=== PATIENT | male | born 1970 | race African-American/Black ===

== ENCOUNTER 2018-10-07 17:39 | Emergency (ER) | payer MEDICAID ==
[~2018-10-07] VITALS: Ht 175.3 cm; Wt 56.7 kg
[2018-10-07 17:50] VITALS: BP 107/73
--- NOTE | 2018-10-07 17:50 | NUR ---
ED Nurse Note: pt walked in to ER from home due to sudden onset lower back pain 11/18. pt aao x4 and ambulatory. skin clean and intact. calm and cooperative but moaning for severe pain. 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 no acute distress noted at this time.
--- NOTE | 2018-10-07 17:53 | NUR ---
ED Nurse Note: ERMD at bedside.
--- NOTE | 2018-10-07 17:57 | Emergency Room Report ---
History of Present Illness General Chief Complaint: Back Pain-No Injury Source: EMS Present Illness HPI Patient is a 48-year-old male presented after increased low back pain. Patient reports having no prior episodes of back pain in the past. He reports having increased difficulty with movements. Pain started approximately 36 hours ago. Patient denies any weakness to his extremities. He reports having increased pain with ambulation. He denies any abdominal pain or vomiting. He reports having normal urination normal bowel movements. He denies recent trauma. Pain is worse with movement. He denies any other joint pain. Pain is described as a tightness. Allergies: Coded Allergies: No Known Allergies (Unverified , 10/07/18) Patient History Past Medical History: see triage record Reviewed Nursing Documentation: PMH: Agreed; PSxH: Agreed Nursing Documentation-PMH Past Medical History: No Stated History Review of Systems All Other Systems: negative except mentioned in HPI Physical Exam Vital Signs Date Time Temp Pulse Resp B/P (MAP) Pulse Ox O2 Delivery O2 Flow Rate FiO2 10/07/18 17:34 98.6 72 19 107/73 (84) 99 Room Air Sp02 EP Interpretation: reviewed, normal General Appearance: normal inspection, well appearing, no apparent distress, alert, GCS 15, non-toxic Head: atraumatic ENT: normal ENT inspection, hearing grossly normal, normal voice Neck: normal inspection, full range of motion, supple, no bony tend Respiratory: normal inspection, lungs clear, normal breath sounds, no respiratory distress, no retraction, no wheezing Cardiovascular #1: regular rate, rhythm, no edema Gastrointestinal: normal inspection, normal bowel sounds, non tender, soft, no guarding, no hernia Genitourinary: no CVA tenderness Musculoskeletal: decreased range of motion - low back with muscle spasm Neurologic: normal inspection, alert, oriented x3, responsive, top taper machine III-XII nml as tested, speech normal Psychiatric: normal inspection, judgement/insight normal, mood/affect normal Medical Decision Making Diagnostic Impression: Primary Impression: Muscle spasm Last Vital Signs Date Time Temp Pulse Resp B/P (MAP) Pulse Ox O2 Delivery O2 Flow Rate FiO2 10/07/18 17:50 98.6 87 19 107/73 99 Room Air Status: improved Disposition: HOME, SELF-CARE Condition: Stable Scripts Ibuprofen* (MOTRIN*) 600 Mg Tablet 600 MG ORAL Q8H PRN for For Pain, #30 TAB 0 Refills Prov: Chin Martin MD 10/07/18 Cyclobenzaprine Hcl* (FLEXERIL*) 10 Mg Tablet 10 MG ORAL TID PRN for Muscle Spasm, #20 TAB Prov: Chin Martin MD 10/07/18 Chin Martin MD Oct 07, 2018 17:57
[2018-10-07] MEDS ORDERED: Ketorolac 60mg Inj IM ONE (18:00)
[2018-10-07] MEDS ORDERED: Cyclobenzaprine 10mg Tab ORAL ONE (18:00)
--- NOTE | 2018-10-07 18:05 | NUR ---
ED Nurse Note: pt went down for CT scan in stable condition.
--- NOTE | 2018-10-07 18:17 | NUR ---
ED Nurse Note: pt came back from CT scan in stable condition.
--- NOTE | 2018-10-07 18:40 | Diagnostic Imaging Report ---
Indication: Back pain Technique: Continuous helical transaxial imaging of the lumbar spine was obtained. No IV contrast was administered. Coronal 2-D reformats were also obtained. Study obtained in a Siemens sensation [address] Total Dose length Product (DLP): 337.[address] Dose Index Volume (CTDIvol): 10.29 mGy Comparison: None Findings: There is no evidence of an acute fracture or malalignment. The lumbar spine is straight which may be due to muscle spasm. Height and configuration of the vertebral bodies and intervertebral discs are within normal limits. There is some calcification of the annulus margins involving some of the discs. The facets are unremarkable. There is no soft tissue swelling. There is mild arterial calcium within portions of the visualized iliac arteries and aorta. Impression: Negative lumbar spine CT. Atherosclerotic vascular disease [facility] has communicated the preliminary results to the Emergency Department. Their findings are largely concordant with this report. The CT scanner at [facility] is accredited by the [employer] and the scans are performed using dose optimization techniques as appropriate to a performed exam including Automatic Exposure control.
[2018-10-07 18:56] LABS: APPEARANCE,URINE CLEAR; BILIRUBIN, URINE NEGATIVE (NEGATIVE); GLUCOSE, URINE (UA) NEGATIVE (NEGATIVE); KETONES,URINE NEGATIVE (NEGATIVE); LEUKOCYTE ESTERASE ,URINE NEGATIVE (NEGATIVE); NITRITE,URINE NEGATIVE (NEGATIVE); PH,URINE 7 (4.5-8.0); PROTEIN,URINE NEGATIVE (NEGATIVE); UROBILINOGEN,URINE 1 MG/DL (0.0-1.0)
[2018-10-07 18:59] LABS: COLOR,URINE YELLOW
--- NOTE | 2018-10-07 19:00 | NUR ---
ED Nurse Note: Recived pt form Darci MORGAN. Pt with no acute distress, vss, and family at bedside. Skin issues noted. Addendum: 10/07/18 at 1917 by ARASH ED Nurse Note: Recived pt form Darci MORGAN. Pt with no acute distress, vss, and family at bedside. Skin issues noted.
--- NOTE | 2018-10-07 19:02 | NUR ---
HAND-OFF: Report given to EDDIE Owusu. waiting for CT result. no orders to carry at this moment.
[2018-10-07] MEDS ORDERED: IBUPROFEN600 MG ORAL (19:36)
[2018-10-07] MEDS ORDERED: CYCLOBENZAPRINE10 MG ORAL (19:36)
[2018-10-07 19:44] VITALS: BP 114/80
== END 2018-10-07 19:44 | disposition home or self-care (01) ==
LOC: EDBD 17:39 → EMR 19:14
DX: M54.5 Low back pain (principal)
CPT/HCPCS: 72131; 81003; 96372; 99284

== ENCOUNTER 2018-12-19 16:17 | Emergency (ER) | payer MEDICAID ==
[~2018-12-19] VITALS: Ht 172.7 cm; Wt 57.2 kg
[~2018-12-19 16:17] MED LIST: CYCLOBENZAPRINE10 MG ORAL; IBUPROFEN600 MG ORAL
[2018-12-19 16:40] VITALS: BP 114/91
--- NOTE | 2018-12-19 16:40 | NUR ---
ED Nurse Note: Pt ambulated into ER accompanied by sister. C/o painful cough and difficulty breathing x 1 week. Pt states pain score 10/10 of abdomen. Pt is AAOx4, audible wheezing and difficult, fast paced respiratory effort noted. no cardiac distress noted. Placed pt on alarm security or surveillance monitor.
[2018-12-19 17:15] LABS: BASOPHILS % (AUTO) 1.8 % (0.0-2.0); EOSINOPHILS % (AUTO) 2.6 % (0.0-3.0); HEMATOCRIT 41.8 % (42.0-52.0); HEMOGLOBIN 14.6 G/DL (14.2-18.0); LYMPHOCYTES % (AUTO) 50.6 % (20.0-45.0); MEAN CORPUSCULAR VOLUME 99 FL (80-99); MONOCYTES % (AUTO) 7.1 % (1.0-10.0); NEUTROPHILS % (AUTO) 37.8 % (45.0-75.0); PLATELET COUNT 161 K/UL (150-450); RED BLOOD COUNT 4.22 M/UL (4.70-6.10); RED CELL DISTRIBUTION WIDTH 11.4 % (11.6-14.8); WHITE BLOOD COUNT 5.1 K/UL (4.8-10.8)
[2018-12-19 17:29] LABS: ANION GAP 11 mmol/L (5-15); BLOOD UREA NITROGEN 21 mg/dL (7-18); CALCIUM 8.6 MG/DL (8.5-10.1); CARBON DIOXIDE 24 MMOL/L (21-32); CHLORIDE 109 MMOL/L (98-107); CREATININE 1.2 MG/DL (0.55-1.30); POTASSIUM 4.2 MMOL/L (3.5-5.1); SODIUM 143 MMOL/L (136-145)
[2018-12-19 17:40] LABS: ALANINE AMINOTRANSFERASE 100 U/L (12-78); ALBUMIN 3.4 G/DL (3.4-5.0); ALKALINE PHOSPHATASE 103 U/L (46-116); ASPARTATE AMINO TRANSFERASE 46 U/L (15-37); BILIRUBIN,TOTAL 0.6 MG/DL (0.2-1.0)
--- NOTE | 2018-12-19 17:40 | NUR ---
ED Nurse Note: MESSI explained to pt about lab results.
[2018-12-19] MEDS: Ipratropium 0.02% Inh Soln 2.5ml UD HHN SCH ×2 (17:46→17:47)
[2018-12-19] MEDS: Albuterol ud Inhalation HHN SCH (17:47)
--- NOTE | 2018-12-19 17:50 | NUR ---
ED Nurse Note: called x-ray for reminder.
--- NOTE | 2018-12-19 17:54 | NUR ---
ED Nurse Note: called x-ray for reminder.
--- NOTE | 2018-12-19 18:09 | Emergency Room Report ---
History of Present Illness General Chief Complaint: Upper Respiratory Illness Source: Patient Present Illness HPI 48-year-old male presents with shortness of breath, x1 week, worsening over the past couple days, dyspnea on exertion, denies any chest pain nausea vomiting, or diaphoresis, he does endorse a mild cough, some thoracic pain, severity is mild, intermittent he does describe a slight ache to his thoracic wall bilaterally patient presents for evaluation Allergies: Coded Allergies: No Known Allergies (Unverified , 10/07/18) Patient History Past Medical History: see triage record Social History: Reports: smoking Reviewed Nursing Documentation: PMH: Agreed; PSxH: Agreed Nursing Documentation-PMH Past Medical History: No Stated History Review of Systems All Other Systems: negative except mentioned in HPI Physical Exam Vital Signs Date Time Temp Pulse Resp B/P (MAP) Pulse Ox O2 Delivery O2 Flow Rate FiO2 12/19/18 16:35 98.2 100 18 115/88 (97) 98 Room Air Sp02 EP Interpretation: reviewed, normal General Appearance: well appearing, no apparent distress, alert Head: normocephalic, atraumatic Eyes: bilateral eye PERRL, bilateral eye EOMI ENT: uvula midline, moist mucus membranes Neck: supple, thyroid normal, supple/symm/no masses Respiratory: lungs clear, no respiratory distress, no retraction, no accessory muscle use Cardiovascular #1: normal peripheral pulses, regular rate, rhythm, no edema, no gallop, no murmur Gastrointestinal: non tender, soft, no guarding, no rebound Musculoskeletal: normal inspection Neurologic: alert, oriented x3 Psychiatric: mood/affect normal Skin: no rash, warm/dry Medical Decision Making Diagnostic Impression: Primary Impression: NSTEMI (non-ST elevated myocardial infarction) Additional Impression: Upper respiratory infection Qualified Codes: J06.9 - Acute upper respiratory infection, unspecified ER Course 48-year-old male presents with cough, dyspnea, shortness of breath x1 week, concern for possible ACS versus pneumonia versus COPD exacerbation Duo nebs, steroids started, patient felt better breathing improved lungs opened up Patient incidentally found to have an elevated troponin, and an enlarged heart on x-ray but no acute cardiopulmonary processes Patient given lovenox and aspirin. Counseled patient that he needs to be admitted to the hospital, patient refused states he does not want to be admitted he will do better at home he states he has a PCP follow-up anyways The patient has requested to leave the ED against medical advice. The patient reason(s) for leaving include, but are not limited to, the following: wants to go home. I believe this patient is of sound mind and competent to refuse medical care. The patient is responding and asking questions appropriately. The patient is oriented to person, place and time. The patient is not psychotic, delusional, suicidal, homicidal or hallucinating. The patient demonstrates a normal mental capacity to make decisions regarding their healthcare. The patient is clinically sober and does not appear to be under the influence of any illicit drugs at this time. The patient has been advised of the risks, in layman terms, of leaving AMA which include, but are not limited to , coma, permanent disability, loss of current lifestyle, delay in diagnosis. Alternatives have been offered - the patient remains steadfast in their wish to leave. The patient has been advised that should they change their mind they are welcome to return to this hospital, or any other, at any time. The patient understands that in no way does an AMA discharge mean that I do not want them to have the best medical care available. To this end, I have provided appropriate prescriptions, referrals, and discharge instructions. The patient did sign AMA paperwork. The above discussion was witnessed by another member of staff. Laboratory Tests Test 12/19/18 16:55 White Blood Count 5.1 K/UL (4.8-10.8) Red Blood Count 4.22 M/UL (4.70-6.10) L Hemoglobin 14.6 G/DL (14.2-18.0) Hematocrit 41.8 % (42.0-52.0) L Mean Corpuscular Volume 99 FL (80-99) Mean Corpuscular Hemoglobin 34.5 PG (27.0-31.0) H Mean Corpuscular Hemoglobin Concent 34.9 G/DL (32.0-36.0) Red Cell Distribution Width 11.4 % (11.6-14.8) L Platelet Count 161 K/UL (150-450) Mean Platelet Volume 8.0 FL (6.5-10.1) Neutrophils (%) (Auto) 37.8 % (45.0-75.0) L Lymphocytes (%) (Auto) 50.6 % (20.0-45.0) H Monocytes (%) (Auto) 7.1 % (1.0-10.0) Eosinophils (%) (Auto) 2.6 % (0.0-3.0) Basophils (%) (Auto) 1.8 % (0.0-2.0) Prothrombin Time 10.9 SEC (9.30-11.50) Prothrombin Time INR 1.0 (0.9-1.1) PTT 26 SEC (23-33) Sodium Level 143 MMOL/L (136-145) Potassium Level 4.2 MMOL/L (3.5-5.1) Chloride Level 109 MMOL/L (98-107) H Carbon Dioxide Level 24 MMOL/L (21-32) Anion Gap 11 mmol/L (5-15) Blood Urea Nitrogen 21 mg/dL (7-18) H Creatinine 1.2 MG/DL (0.55-1.30) Estimate Glomerular Filtration Rate > 60 mL/min (>60) Glucose Level 86 MG/DL (74-106) Calcium Level 8.6 MG/DL (8.5-10.1) Total Bilirubin 0.6 MG/DL (0.2-1.0) Aspartate Amino Transferase (AST) 46 U/L (15-37) H Alanine Aminotransferase (ALT) 100 U/L (12-78) H Alkaline Phosphatase 103 U/L (46-116) Troponin I 0.074 ng/mL (0.000-0.056) Pro-B-Type Natriuretic Peptide 3596 pg/mL (0-125) H Total Protein 6.7 G/DL (6.4-8.2) Albumin 3.4 G/DL (3.4-5.0) Globulin 3.3 g/dL Albumin/Globulin Ratio 1.0 (1.0-2.7) Lipase 244 U/L (73-393) EKG Diagnostic Results EKG Time: 16:58 EP Interpretation: sinus tachycardia, rate 104, qtc 494, left axis dev, no acute st elevatio Rhythm Strip Diag. Results Rhythm Strip Time: 18:09 EP Interpretation: yes Rate: 104 Rhythm: no PVC's, no ectopy, other - sinus tachycardia Chest X-Ray Diagnostic Results Chest X-Ray Diagnostic Results : Chest X-Ray Ordered: Yes # of Views/Limited/Complete: 1 View Indication: Chest Pain EP Interpretation: Yes Interpretation: no consolidation, no effusion, no pneumothorax, no acute cardiopulmonary disease, other - Enlarged heart Impression: No acute disease Electronically Signed by: Norman Foley MD Last Vital Signs Date Time Temp Pulse Resp B/P (MAP) Pulse Ox O2 Delivery O2 Flow Rate FiO2 12/19/18 16:40 98.2 102 18 114/91 98 Room Air Disposition: HOME, SELF-CARE Condition: Stable Scripts Aspirin* (ASPIR 81*) 81 Mg Tablet. 81 MG ORAL DAILY, #90 TAB Prov: Norman Foley MD 12/19/18 Albuterol Sulfate* (ALBUTEROL SULFATE HHN*) 2.5 Mg/3 Ml Vial.neb 2.5 MG HHN Q4H PRN for Shortness of Breath, #100 VIAL Prov: Norman Foley MD 12/19/18 Albuterol Sulfate* (ALBUTEROL SULFATE MDI*) 8.5 Gm Hfa.aer.ad 2 PUFF INH Q4H PRN for cough/wheezing, #1 EA 0 Refills Prov: Norman Foley MD 12/19/18 Referrals: [facility] Patient Instructions: Chronic Obstructive Pulmonary Disease Exacerbation, Easy- to-Read, Non-ST Segment Elevation Heart Attack, Upper Respiratory Infection, Adult Additional Instructions: The patient was provided with discharge instructions, notified to follow-up with a primary care doctor and or specialist in the next 24-48 hours, and to return to the ED if they have worsening of their symptoms. Please note that this report is being documented using [employer] technology. This can lead to erroneous entry secondary to incorrect interpretation by the dictating instrument. PLEASE FOLLOW-UP WITH CORRUGATED SHEET MATERIAL SHEETER, PLEASE FOLLOW-UP WITH PCP, PLEASE FOLLOW-UP WITH PULMONOLOGY VANIA YOU WILL NEED A CATH AND POSSIBLE STRESS. PLEASE TAKE ASPIRIN EVERYDAY IF YOU GET WORSE PLEASE COME BACK TO THE ED. Norman Foley MD Dec 19, 2018 18:09
[2018-12-19] MEDS ORDERED: Enoxaparin 60mg Inj SUBQ ONE (18:15)
--- NOTE | 2018-12-19 18:26 | NUR ---
ED Nurse Note: x-ray at bedside.
--- NOTE | 2018-12-19 18:33 | NUR ---
ED Nurse Note: pt was informed about admitting plans and refused to be admitted. ERMD made aware.
[2018-12-19] MEDS ORDERED: ASPIR 8181 MG ORAL (18:51)
[2018-12-19] MEDS ORDERED: ALBUTEROL SULF8.5 GM INH (18:51)
[2018-12-19] MEDS ORDERED: ALBUTEROL2.5 MG/3 M HHN (18:51)
--- NOTE | 2018-12-19 18:52 | NUR ---
ED Nurse Note: ERMD explaining to pt about risk of leaving AMA.
[2018-12-19] MEDS ORDERED: FUROSEMIDE20 M1 ORAL (19:09)
--- NOTE | 2018-12-19 19:15 | NUR ---
AMA: SEE AMA FORM. ED Nurse Note: Pt risks of leaving explained by health care Provider. pt verbalized understanding of risks and would still like to leave AMA. prescriptions and d/c instructions were explained to pt and sister who both verbalized understanding of teachings. All medical devices such as ID band and IV removed. Pt is AAO x4, ambulatory and left with all personal belongings.
[2018-12-19 19:20] VITALS: BP 113/79
--- NOTE | 2018-12-20 15:19 | Diagnostic Imaging Report ---
Indication: Dyspnea Comparison: None A single view chest radiograph was obtained. Findings: Cardiac silhouette is prominent. Lung volumes are low bilaterally. There is suggestion of mild pulmonary vascular congestion. Correlate clinically. Bones are unremarkable. IMPRESSION: Query mild pulmonary vascular congestion. Correlate clinically
== END 2018-12-19 19:20 | disposition left against medical advice (07) ==
LOC: EMR 17:00 → CANBEDREQ 19:10 → EMR 19:20
DX: I21.4 Non-ST elevation (NSTEMI) myocardial infarction (principal); J06.9 Acute upper respiratory infection, unspecified; F17.200 Nicotine dependence, unspecified, uncomplicated; R00.0 Tachycardia, unspecified
CPT/HCPCS: 36415; 71045; 80053; 83690; 83880; 84484; 85025; 85610; 85730; 93005; 94640; 94664; 96365; 96366; 96372; 96375; J1650; J1940; J8540; Z7502; 99285; J7030

== ENCOUNTER 2018-12-26 05:44 | Emergency (ER) | payer MEDICAID ==
[~2018-12-26] VITALS: Ht 167.6 cm; Wt 54.4 kg
[~2018-12-26 05:44] MED LIST changes: +ALBUTEROL SULF8.5 GM INH; +ALBUTEROL2.5 MG/3 M HHN; +ASPIR 8181 MG ORAL; +FUROSEMIDE20 M1 ORAL
--- NOTE | 2018-12-26 06:15 | Emergency Room Report ---
History of Present Illness General Chief Complaint: Chest Pain Source: Patient (Chin Martin MD) Present Illness HPI Patient is a 48-year-old male who presents after increased abdominal discomfort and vomiting. He reports having bilateral crampy abdominal pain associated with vomiting. He had a recent emergency department visit at this hospital approximately 1 week ago. Denies any hematemesis or bloody stool. He reports having increased chest discomfort since last night approximately 9 PM. He had recently been prescribed inhaler. Patient does not have any prior history of hypertension or high cholesterol. He is not diabetic. He had previously been a cigar smoker. (Chin Martin MD) Allergies: Coded Allergies: No Known Allergies (Unverified , 10/07/18) Patient History Past Medical History: see triage record Reviewed Nursing Documentation: PMH: Agreed; PSxH: Agreed (Chin Martin MD) Review of Systems All Other Systems: negative except mentioned in HPI (Chin Martin MD) Physical Exam Vital Signs Date Time Temp Pulse Resp B/P (MAP) Pulse Ox O2 Delivery O2 Flow Rate FiO2 12/26/18 06:01 98 18 107/83 (91) 97 Room Air Sp02 EP Interpretation: reviewed, normal General Appearance: normal inspection, well appearing, no apparent distress, alert, GCS 15, thin, Chronically Ill Head: atraumatic ENT: normal ENT inspection, hearing grossly normal, normal voice Neck: normal inspection, full range of motion, supple, no bony tend Respiratory: normal inspection, lungs clear, normal breath sounds, no respiratory distress, no retraction, no wheezing Cardiovascular #1: regular rate, rhythm, no edema Gastrointestinal: normal inspection, normal bowel sounds, non tender, soft, no guarding, no hernia Genitourinary: no CVA tenderness Musculoskeletal: normal inspection, back normal, normal range of motion Neurologic: normal inspection, alert, oriented x3, responsive, 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 Differential diagnosis included but was not limited to acute coronary syndrome, pulmonary embolism, pneumonia, aortic dissection, shingles, pneumothorax, aortic dissection, esophageal rupture, pericarditis. CxR showed cardiomegaly without infiltrate. Patient was given IV lasix with some improvement. Patient was endorsed to Dr. Card pending admission authorization and final disposition. Labs Test 12/26/18 06:30 12/26/18 06:50 White Blood Count 7.2 K/UL (4.8-10.8) Red Blood Count 4.79 M/UL (4.70-6.10) Hemoglobin 16.1 G/DL (14.2-18.0) Hematocrit 48.4 % (42.0-52.0) Mean Corpuscular Volume 101 FL (80-99) Mean Corpuscular Hemoglobin 33.6 PG (27.0-31.0) Mean Corpuscular Hemoglobin Concent 33.2 G/DL (32.0-36.0) Red Cell Distribution Width 12.0 % (11.6-14.8) Platelet Count 201 K/UL (150-450) Mean Platelet Volume 7.2 FL (6.5-10.1) Neutrophils (%) (Auto) 62.8 % (45.0-75.0) Lymphocytes (%) (Auto) 30.9 % (20.0-45.0) Monocytes (%) (Auto) 5.0 % (1.0-10.0) Eosinophils (%) (Auto) 0.4 % (0.0-3.0) Basophils (%) (Auto) 1.0 % (0.0-2.0) Prothrombin Time 12.7 SEC (9.30-11.50) Prothromb Time International Ratio 1.2 (0.9-1.1) Activated Partial Thromboplast Time 27 SEC (23-33) Sodium Level 134 MMOL/L (136-145) Potassium Level 5.1 MMOL/L (3.5-5.1) Chloride Level 102 MMOL/L (98-107) Carbon Dioxide Level 25 MMOL/L (21-32) Anion Gap 7 mmol/L (5-15) Blood Urea Nitrogen 26 mg/dL (7-18) Creatinine 1.3 MG/DL (0.55-1.30) Estimat Glomerular Filtration Rate > 60 mL/min (>60) Glucose Level 127 MG/DL (74-106) Calcium Level 8.6 MG/DL (8.5-10.1) Total Bilirubin 3.8 MG/DL (0.2-1.0) Direct Bilirubin 0.4 MG/DL (0.0-0.3) Aspartate Amino Transf (AST/SGOT) 54 U/L (15-37) Alanine Aminotransferase (ALT/SGPT) 90 U/L (12-78) Alkaline Phosphatase 88 U/L (46-116) Total Creatine Kinase 95 U/L (26-308) Troponin I 0.007 ng/mL (0.000-0.056) Pro-B-Type Natriuretic Peptide 5457 pg/mL (0-125) Total Protein 6.9 G/DL (6.4-8.2) Albumin 3.7 G/DL (3.4-5.0) Globulin 3.2 g/dL Albumin/Globulin Ratio 1.2 (1.0-2.7) Lipase 108 U/L (73-393) Urine Opiates Screen Negative (NEGATIVE) Urine Barbiturates Screen Negative (NEGATIVE) Phencyclidine (PCP) Screen Negative (NEGATIVE) Urine Amphetamines Screen Negative (NEGATIVE) Urine Benzodiazepines Screen Negative (NEGATIVE) Urine Cocaine Screen Negative (NEGATIVE) Urine Marijuana (THC) Screen Positive (NEGATIVE) (Chin Martin MD) ER Course Please see above note Patient with chest pain. Cardiomegaly and elevated BNP. Negative troponin. Lasix given. Presented to Dr. Calderon accepts the patient. Pain is improved and patient diuresing. Patient stable for transfer. Laboratory Tests Test 12/26/18 06:30 12/26/18 06:50 White Blood Count 7.2 K/UL (4.8-10.8) Red Blood Count 4.79 M/UL (4.70-6.10) Hemoglobin 16.1 G/DL (14.2-18.0) Hematocrit 48.4 % (42.0-52.0) Mean Corpuscular Volume 101 FL (80-99) H Mean Corpuscular Hemoglobin 33.6 PG (27.0-31.0) H Mean Corpuscular Hemoglobin Concent 33.2 G/DL (32.0-36.0) Red Cell Distribution Width 12.0 % (11.6-14.8) Platelet Count 201 K/UL (150-450) Mean Platelet Volume 7.2 FL (6.5-10.1) Neutrophils (%) (Auto) 62.8 % (45.0-75.0) Lymphocytes (%) (Auto) 30.9 % (20.0-45.0) Monocytes (%) (Auto) 5.0 % (1.0-10.0) Eosinophils (%) (Auto) 0.4 % (0.0-3.0) Basophils (%) (Auto) 1.0 % (0.0-2.0) Prothrombin Time 12.7 SEC (9.30-11.50) H Prothrombin Time INR 1.2 (0.9-1.1) H PTT 27 SEC (23-33) Sodium Level 134 MMOL/L (136-145) L Potassium Level 5.1 MMOL/L (3.5-5.1) Chloride Level 102 MMOL/L (98-107) Carbon Dioxide Level 25 MMOL/L (21-32) Anion Gap 7 mmol/L (5-15) Blood Urea Nitrogen 26 mg/dL (7-18) H Creatinine 1.3 MG/DL (0.55-1.30) Estimate Glomerular Filtration Rate > 60 mL/min (>60) Glucose Level 127 MG/DL (74-106) H Calcium Level 8.6 MG/DL (8.5-10.1) Total Bilirubin 3.8 MG/DL (0.2-1.0) H Direct Bilirubin 0.4 MG/DL (0.0-0.3) H Aspartate Amino Transferase (AST) 54 U/L (15-37) H Alanine Aminotransferase (ALT) 90 U/L (12-78) H Alkaline Phosphatase 88 U/L (46-116) Total Creatine Kinase 95 U/L (26-308) Troponin I 0.007 ng/mL (0.000-0.056) Pro-B-Type Natriuretic Peptide 5457 pg/mL (0-125) H Total Protein 6.9 G/DL (6.4-8.2) Albumin 3.7 G/DL (3.4-5.0) Globulin 3.2 g/dL Albumin/Globulin Ratio 1.2 (1.0-2.7) Lipase 108 U/L (73-393) Urine Opiates Screen Negative (NEGATIVE) Urine Barbiturates Screen Negative (NEGATIVE) Phencyclidine (PCP) Screen Negative (NEGATIVE) Urine Amphetamines Screen Negative (NEGATIVE) Urine Benzodiazepines Screen Negative (NEGATIVE) Urine Cocaine Screen Negative (NEGATIVE) Urine Marijuana (THC) Screen Positive (NEGATIVE) H (Mitchell Card MD) EKG Diagnostic Results Rate: normal Rhythm: NSR ST Segments: other - twave inversion, unchanged from prior ekg (Chin Martin MD) Rhythm Strip Diag. Results EP Interpretation: yes Rhythm: no PVC's, no ectopy, other - ST (Mitchell Card MD) Last Vital Signs Date Time Temp Pulse Resp B/P (MAP) Pulse Ox O2 Delivery O2 Flow Rate FiO2 12/26/18 06:01 98 18 107/83 (91) 97 Room Air Status: improved (Chin Martin MD) Last Vital Signs Date Time Temp Pulse Resp B/P (MAP) Pulse Ox O2 Delivery O2 Flow Rate FiO2 12/26/18 12:51 98.6 106 20 105/75 100 Room Air Status: improved (Mitchell Card MD) Disposition: XFER SHT-TRM HOSP Condition: Serious Chin Martin MD Dec 26, 2018 06:15 Mitchell Card MD Dec 26, 2018 08:04
[2018-12-26] MEDS ORDERED: METOPROLOL SUCC50 MG ORAL (06:20)
[2018-12-26] MEDS ORDERED: PANTOPRAZOLE SO40 MG ORAL (06:20)
[2018-12-26] MEDS ORDERED: QVAR7.3 GM INH (06:20)
[2018-12-26] MEDS ORDERED: Morphine Sulfate 4mg/ml Inj (IV USE ONLY) IVP ONE (06:45)
--- NOTE | 2018-12-26 06:45 | NUR ---
ED Nurse Note: Recieved pt from home, here with c/o mid chest pain intermittently for past week, pt was seen here 1 week ago and for same reason, pt also c/o having cough and congestion, denies fevers, diarrhea and has intermittent nausea, pt immediately gowned and placed on monitoring, iv line and labs being done, will medicate pt as ordered and continue to closely monitor.
--- NOTE | 2018-12-26 07:08 | NUR ---
HAND-OFF: Report given to am nurse. .
[2018-12-26 07:15] LABS: ANION GAP 7 mmol/L (5-15); BLOOD UREA NITROGEN 26 mg/dL (7-18); CALCIUM 8.6 MG/DL (8.5-10.1); CARBON DIOXIDE 25 MMOL/L (21-32); CHLORIDE 102 MMOL/L (98-107); CREATININE 1.3 MG/DL (0.55-1.30); POTASSIUM 5.1 MMOL/L (3.5-5.1); SODIUM 134 MMOL/L (136-145)
[2018-12-26 07:16] LABS: EOSINOPHILS % (AUTO) 0.4 % (0.0-3.0); HEMATOCRIT 48.4 % (42.0-52.0); HEMOGLOBIN 16.1 G/DL (14.2-18.0); LYMPHOCYTES % (AUTO) 30.9 % (20.0-45.0); MEAN CORPUSCULAR VOLUME 101 FL (80-99); NEUTROPHILS % (AUTO) 62.8 % (45.0-75.0); PLATELET COUNT 201 K/UL (150-450); RED BLOOD COUNT 4.79 M/UL (4.70-6.10); WHITE BLOOD COUNT 7.2 K/UL (4.8-10.8)
[2018-12-26 07:17] LABS: CREATINE KINASE 95 U/L (26-308)
[2018-12-26 07:26] LABS: ALANINE AMINOTRANSFERASE 90 U/L (12-78); ALBUMIN 3.7 G/DL (3.4-5.0); ALBUMIN/GLOBULIN RATIO 1.2 (1.0-2.7); ALKALINE PHOSPHATASE 88 U/L (46-116); ASPARTATE AMINO TRANSFERASE 54 U/L (15-37); BILIRUBIN,TOTAL 3.8 MG/DL (0.2-1.0)
[2018-12-26 07:27] LABS: INR 1.2 (0.9-1.1)
[2018-12-26 07:29] LABS: BILIRUBIN,DIRECT 0.4 MG/DL (0.0-0.3)
--- NOTE | 2018-12-26 07:30 | NUR ---
ED Nurse Note: Received report from EDDIE Bishop. Observed patient in bed, awake, alert, verbally responsive, and able to make needs know. On room air, saturating 100%. Patient denies cp at this time, states "morphine is kicking in". No n/v. IV on right FA intact and patent. Instructed to call for assistance, verbalized understanding. Will continue to monitor patient.
[2018-12-26 07:57] VITALS: BP 122/100
--- NOTE | 2018-12-26 08:11 | Diagnostic Imaging Report ---
EXAM: XR Chest, 1 View CLINICAL HISTORY: SOB TECHNIQUE: Frontal view of the chest. COMPARISON: 12 19 18 FINDINGS: Lungs: Unremarkable. No consolidation. Pleural space: Small bilateral pleural effusions, decreased. No pneumothorax. Heart: Moderate cardiomegaly. Mediastinum: Unremarkable. Bones joints: Unremarkable. IMPRESSION: 1. Moderate cardiomegaly. 2. Small bilateral pleural effusions, decreased.
[2018-12-26 09:05] VITALS: BP 108/87
--- NOTE | 2018-12-26 09:13 | NUR ---
ED Nurse Note: Patient remains in bed, aox4, VSS; no acute distress at this time. Family at bedside. Informed possible transfer to [facility], verbalized understanding. Will continue to monitor.
[2018-12-26 10:27] VITALS: BP 103/79
--- NOTE | 2018-12-26 11:04 | NUR ---
ED Nurse Note: Report given to EDDIE Patterson from [facility], via telephone.
--- NOTE | 2018-12-26 11:30 | NUR ---
ER DISCHARGE NOTE: Patient is cleared to be transferred to [facility] per ERMD via ambulance BLS. pt is aox4, on room air, with stable vital signs. pt took all belongings.
[2018-12-26 12:51] VITALS: BP 105/75
--- NOTE | 2018-12-28 17:22 | Cardiology Report ---
APPROVED REPORT EKG Measurement Heart [id number] Sinus tachycardia Left atrial enlargement Incomplete right bundle branch block Left anterior fascicular block Cannot rule out Inferior infarct (masked by fascicular block?), age undetermined Anterior infarct, age undetermined Abnormal ECG
== END 2018-12-26 11:30 | disposition short-term general hospital (02) ==
LOC: EMR 06:18
DX: R07.9 Chest pain, unspecified (principal); I50.82 Biventricular heart failure; R11.10 Vomiting, unspecified
CPT/HCPCS: 36415; 71045; 80053; 80307; 82248; 82550; 83690; 83880; 84484; 85025; 85610; 85730; 93005; 96374; 96375; J1940; J2270; J2405; S0028; Z7502; 99284

== ENCOUNTER 2019-08-22 17:52 | Emergency (ER) | payer MEDICAID ==
[~2019-08-22] VITALS: Ht 167.6 cm; Wt 63.5 kg
[~2019-08-22 17:52] MED LIST changes: +METOPROLOL SUCC50 MG ORAL; +PANTOPRAZOLE SO40 MG ORAL; +QVAR7.3 GM INH
[2019-08-22 18:00] VITALS: BP 132/78
[2019-08-22] MEDS ORDERED: Tylenol #3 tab (300mg/30mg) ORAL ONE (18:15)
--- NOTE | 2019-08-22 19:10 | Diagnostic Imaging Report ---
EXAM: XR Left Ribs and AP Chest, 3 or More Views CLINICAL HISTORY: PAIN TECHNIQUE: Frontal and oblique views of the left ribs and frontal view of the chest. COMPARISON: No relevant prior studies available. FINDINGS: Lungs: Interstitial pulmonary edema and vascular congestion. Pleural space: Unremarkable. No pneumothorax. Heart: Cardiomegaly. Mediastinum: Unremarkable. Bones/joints: Slight thoracic dextrocurvature. No acute fracture. IMPRESSION: No displaced rib fracture. Cardiomegaly. Vascular congestion with interstitial pulmonary edema.
[2019-08-22] MEDS ORDERED: TYLENOL EXTRA500 MG ORAL (19:16)
[2019-08-22] MEDS ORDERED: LIDODERM700 M1 TOPIC (19:16)
[2019-08-22 19:23] VITALS: BP 132/78
--- NOTE | 2019-08-22 19:48 | Emergency Room Report ---
History of Present Illness General Chief Complaint: Multiple Trauma/Fall Source: Patient, EMS Present Illness HPI 49-year-old male presents to ED status post fall with rib pain. States he fell yesterday at home. Landed on the stairs and landed on his left side ribs. Denies hitting his head or LOC. Complaining of pain to the left side ribs. 10 out of 10, sharp, nonradiating. Worse with movement. Denies chest pain or shortness of breath. No other aggravating relieving factors. Denies any other associated symptoms Allergies: Coded Allergies: No Known Allergies (Unverified , 10/07/18) COVID-19 Screening Contact w/high risk pt: No Experienced COVID-19 symptoms?: No COVID-19 Testing performed KENNEL AIDE: No Patient History Past Medical History: HTN Past Surgical History: none Pertinent Family History: none Social History: Denies: smoking, alcohol use, drug use Immunizations: UTD Reviewed Nursing Documentation: PMH: Agreed; PSxH: Agreed Nursing Documentation-PMH Past Medical History: No History, Except For Hx Cardiac Problems: Yes - Enlarged heart Hx Hypertension: Yes Review of Systems All Other Systems: negative except mentioned in HPI Physical Exam Vital Signs Date Time Temp Pulse Resp B/P (MAP) Pulse Ox O2 Delivery O2 Flow Rate FiO2 08/22/19 17:55 97.0 90 16 132/78 (96) 97 Room Air Sp02 EP Interpretation: reviewed, normal General Appearance: no apparent distress, alert, GCS 15, non-toxic Head: normocephalic, atraumatic Eyes: bilateral eye normal inspection, bilateral eye PERRL ENT: hearing grossly normal, normal pharynx, no angioedema, normal voice Neck: full range of motion, supple/symm/no masses Respiratory: lungs clear, normal breath sounds, speaking full sentences, other - L sided rib pain Cardiovascular #1: regular rate, rhythm, no edema Cardiovascular #2: 2+ carotid (R), 2+ carotid (L), 2+ radial (R), 2+ radial (L) , 2+ dorsalis pedis (R), 2+ dorsalis pedis (L) Gastrointestinal: normal bowel sounds, non tender, soft, non-distended, no guarding, no rebound Rectal: deferred Genitourinary: normal inspection, no CVA tenderness Musculoskeletal: back normal, normal range of motion, gait/station normal, non- tender Neurologic: alert, motor strength/tone normal, oriented x3, sensory intact, responsive, speech normal Psychiatric: judgement/insight normal, memory normal, mood/affect normal, no suicidal/homicidal ideation Reflexes: 3+ bicep (R), 3+ bicep (L), 3+ tricep (R), 3+ tricep (L), 3+ knee (R) , 3+ knee (L) Skin: no rash Lymphatic: no adenopathy Medical Decision Making Diagnostic Impression: Primary Impression: Rib contusion Qualified Codes: S20.212A - Contusion of left front wall of thorax, initial encounter ER Course hospital Course 49-year-old M presents to ED complaining of L sided rib pain s/p trip and fall Differential diagnoses include: Fracture, dislocation, sprain, contusion Clinical course Patient placed on stretcher. After initial history and physical, I ordered pain medications and Xrays of L ribs Xrays read shows no acute fracture/dislocation/PTX. I discussed findings with patient. Reassurance given. Safe for discharge with close outpatient follow-up. I will provide referrals Diagnosis - rib contusion Stable and discharged to home with prescription for tylenol, lidoderm. weight bear as tolerated. Followup with PMD. Return to ED if symptoms recur or worsen Chest X-Ray Diagnostic Results Chest X-Ray Diagnostic Results : Chest X-Ray Ordered: Yes # of Views/Limited/Complete: 1 View Indication: Other - pain EP Interpretation: Yes Interpretation: no consolidation, no effusion, no pneumothorax, no acute cardiopulmonary disease Impression: No acute disease Electronically Signed by: Electronically signed by Ronal Rosas MD Other X-Ray Diagnostic Results Other X-Ray Diagnostic Results : X-Ray ordered: L ribs # of Views/Limited Vs Complete: 3 View Indication: Pain EP Interpretation: Yes Interpretation: no dislocation, no fractures Impression: No acute disease Electronically Signed by: Electronically signed by Ronal Rosas MD Last Vital Signs Date Time Temp Pulse Resp B/P (MAP) Pulse Ox O2 Delivery O2 Flow Rate FiO2 08/22/19 19:23 97.0 82 16 132/78 97 Room Air Status: improved Disposition: HOME, SELF-CARE Condition: Stable Scripts Lidocaine Patch* (Lidoderm Patch*) 1 Each Adh..patch 1 PATCH TOPIC DAILY, #7 PATCH 0 Refills Patch(es) may remain in place for up to 12 hours in any 24-hour period. Prov: Ronal Rosas MD 08/22/19 Acetaminophen* (TYLENOL EXTRA STRENGTH*) 500 Mg Tablet 500 MG ORAL Q8H PRN for Prn Headache/Temp > 101, #30 TAB 0 Refills Prov: Ronal Rosas MD 08/22/19 Referrals: NON PHYSICIAN (PCP) [facility] Open 24 hour /7 days a week by Appointment Only [address] [address] Patient Instructions: Rib Contusion Ronal Rosas MD Aug 22, 2019 19:48
== END 2019-08-22 19:23 | disposition home or self-care (01) ==
LOC: EDBD 17:52 → EMR 18:08
DX: S20.212A Contusion of left front wall of thorax, initial encounter (principal); I10 Essential (primary) hypertension; W19.XXXA Unspecified fall, initial encounter; Y92.9 Unspecified place or not applicable
CPT/HCPCS: 71101; Z7502; 99283